=== PATIENT | female | born 1990 | race African-American/Black ===

== ENCOUNTER 2022-02-01 09:30 | Inpatient (IN) | payer OTHER ==
[~2022-02-01] VITALS: Ht 165.1 cm; Wt 83.9 kg
[2022-02-01] MEDS ORDERED: TERBUTALINE 1 MG/ML VIAL SUBQ ONE (09:56)
[2022-02-01] MEDS ORDERED: LACTATED RINGERS 1,000 ML IV SCH (10:05)
[2022-02-01] MEDS: TERBUTALINE 1 MG/ML VIAL SUBQ SCH ×2 (10:38→10:39)
[2022-02-01 10:59] VITALS: BP 133/72
[2022-02-01] MEDS ORDERED: PNV1TABL5 PO (11:02)
[2022-02-01] MEDS ORDERED: MAG SULF 2000 MG/WATER PREMIX 50 ML IV ONE (11:30)
[2022-02-01] MEDS ORDERED: MAG SULF 20 GM/H2O PREMIX DRIP 500 ML IV SCH (11:30)
[2022-02-01] MEDS ORDERED: MORPHINE SULFATE 5 MG/ML VIAL IVP PRN (11:35)
[2022-02-01] MEDS ORDERED: AMPICILLIN 2,000 MG in NACL 0.9% 100 ML IV ONE (11:35)
[2022-02-01] MEDS ORDERED: ONDANSETRON 4 MG/2 ML VIAL IVP PRN ×3 (11:35→16:15)
[2022-02-01] MEDS ORDERED: AMPICILLIN 2,000 MG VIAL ONE (11:44)
[2022-02-01] MEDS ORDERED: MORPHINE SULFATE 10 MG/ML VIAL ONE (12:00)
[2022-02-01 12:11] LABS: APPEARANCE,URINE CLEAR (CLEAR); BILIRUBIN,URINE NEGATIVE (NEGATIVE); BLOOD, URINE NEGATIVE (NEGATIVE); COLOR,URINE YELLOW (YELLOW); LEUKOCYTE ESTERASE ,URINE TRACE (NEGATIVE); NITRITE, URINE NEGATIVE (NEGATIVE); UGLUCOSE NEGATIVE (NEGATIVE)
[2022-02-01 12:17] LABS: BASOPHILS % (AUTO) 0.2 % (0.0-2.0); EOSINOPHILS % (AUTO) 0.1 % (0.0-4.0); HEMOGLOBIN 9.3 g/dL (12.0-16.0); LYMPHOCYTES # (AUTO) 2.5 K/uL (2.5-16.5); LYMPHOCYTES % (AUTO) 16.4 % (20.5-51.1); MEAN CORPUSCULAR HEMOGLOBIN 26 pg (27-31); MEAN CORPUSCULAR HGB CONC 32 g/dL (33-37); MEAN CORPUSCULAR VOLUME 80.4 fL (80-94); MONOCYTES # (AUTO) 0.9 K/uL (0.8-1.0); MONOCYTES % (AUTO) 5.7 % (1.7-9.3); NEUTROPHILS # (AUTO) 11.7 K/uL (1.8-7.7); NEUTROPHILS % (AUTO) 77.6 % (42.2-75.2); PLATELET COUNT (AUTO) 373 K/uL (140-450); RED BLOOD CELL COUNT(AUTO) 3.61 MIL/uL (4.20-5.40); RED CELL DISTRIBUTION WIDTH 17.6 % (11.6-13.7); WHITE BLOOD COUNT (AUTO) 15.1 K/uL (4.8-10.8)
[2022-02-01 12:37] LABS: RBC,URINE 0 /HPF (0-5); WBC,URINE 0 /HPF (0-5)
[2022-02-01 12:51] LABS: ANION GAP 15.8 (8-16); CREATININE 0.7 mg/dL (0.6-1.3); TOTAL BILIRUBIN 0.5 mg/dL (0.0-1.0)
[2022-02-01 13:00] LABS: POTASSIUM 2.8 mmol/L (3.5-5.1)
[2022-02-01] MEDS ORDERED: POTASSIUM CHLORIDE 40 MEQ, LIDOCAINE MPF 1% 25 MG in NACL 0.9% 250 ML IV SCH (14:00)
[2022-02-01] MEDS ORDERED: CITRIC ACID/SODIUM CITRATE 30 ML UDC PO ONE (14:45)
[2022-02-01] MEDS ORDERED: MIDAZOLAM 2 MG/2 ML VIAL ONE (15:40)
[2022-02-01] MEDS ORDERED: MORPHINE PRES FREE 10 MG/10 ML AMP IV ONE (15:40)
[2022-02-01] MEDS ORDERED: ONDANSETRON 4 MG/2 ML VIAL ONE (15:40)
[2022-02-01] MEDS ORDERED: TEMAZEPAM 15 MG CAP PO PRN (15:50)
[2022-02-01] MEDS ORDERED: KETOROLAC 30 MG/ML VIAL IVP PRN (15:50)
[2022-02-01] MEDS ORDERED: OXYTOCIN 20 UNITS in LACTATED RINGERS 1,000 ML IV SCH ×2 (15:50→16:15)
[2022-02-01] MEDS ORDERED: oxyCODONE/APAP 5/325 MG 1 TAB TAB PO PRN (15:50)
[2022-02-01] MEDS ORDERED: IBUPROFEN 800 MG TAB PO PRN (15:50)
[2022-02-01] MEDS ORDERED: OXYTOCIN 20 UNITS in DEXT 5% / LACT RING 1,000 ML IV SCH (15:50)
[2022-02-01] MEDS ORDERED: METHYLERGONOVINE 0.2 MG/ML AMP IM PRN (15:50)
[2022-02-01] MEDS ORDERED: AMPICILLIN 1,000 MG in NACL 0.9% 50 ML IV SCH (16:00)
[2022-02-01] MEDS ORDERED: OXYTOCIN 20 UNITS/LR PREMIX 1,000 ML IV ONE (16:06)
[2022-02-01] MEDS ORDERED: HYDROmorphone 1 MG/ML AMP IVP PRN (16:15)
[2022-02-01] MEDS ORDERED: diphenhydrAMINE 50 MG/ML VIAL IVP PRN ×2 (16:15)
[2022-02-01] MEDS ORDERED: NALBUPHINE 10 MG/ML AMP IVP PRN (16:15)
[2022-02-01] MEDS ORDERED: NALOXONE 0.4 MG/ML VIAL IVP PRN ×3 (16:15)
[2022-02-01] MEDS ORDERED: MEPERIDINE 25 MG/ML SYR IVP PRN (16:15)
[2022-02-01] MEDS: DOCUSATE SOD/SENNA 50/8.6 MG 1 TAB PO SCH (21:00)
[2022-02-02] MEDS: KETOROLAC 30 MG/ML VIAL IM/IVP SCH ×2 (00:02→06:08)
[2022-02-02] MEDS ORDERED: OXYTOCIN 20 UNITS/LR PREMIX 1,000 ML IV ONE ×2 (02:06→10:28)
[2022-02-02] MEDS: OXYTOCIN 20 UNITS in LACTATED RINGERS 1,000 ML IV SCH ×2 (02:10→11:30)
[2022-02-02 08:00] LABS: BASOPHILS % (AUTO) 0.2 % (0.0-2.0); EOSINOPHILS % (AUTO) 0.2 % (0.0-4.0); HEMATOCRIT 24.4 % (36-48); HEMOGLOBIN 7.8 g/dL (12.0-16.0); LYMPHOCYTES # (AUTO) 1.3 K/uL (2.5-16.5); LYMPHOCYTES % (AUTO) 10.8 % (20.5-51.1); MEAN CORPUSCULAR HEMOGLOBIN 26 pg (27-31); MEAN CORPUSCULAR HGB CONC 32 g/dL (33-37); MEAN CORPUSCULAR VOLUME 79.7 fL (80-94); MONOCYTES # (AUTO) 0.9 K/uL (0.8-1.0); MONOCYTES % (AUTO) 7.2 % (1.7-9.3); NEUTROPHILS # (AUTO) 9.7 K/uL (1.8-7.7); NEUTROPHILS % (AUTO) 81.6 % (42.2-75.2); PLATELET COUNT (AUTO) 314 K/uL (140-450); RED BLOOD CELL COUNT(AUTO) 3.06 MIL/uL (4.20-5.40); RED CELL DISTRIBUTION WIDTH 17.5 % (11.6-13.7); WHITE BLOOD COUNT (AUTO) 11.9 K/uL (4.8-10.8)
--- NOTE | 2022-02-02 08:04 | NUR ---
PATIENT HAS BEEN SCREENED AND CATEGORIZED LOW NUTRITION RISK. PATIENT WILL BE SEEN WITHIN 7 DAYS OF ADMISSION. 02/02/22-02/08/[address]
[2022-02-02 08:21] LABS: ALBUMIN 2.2 g/dL (3.4-5.0); ANION GAP 13.9 (8-16); CARBON DIOXIDE 20.8 mmol/L (21-32); CREATININE 0.6 mg/dL (0.6-1.3); POTASSIUM 3.7 mmol/L (3.5-5.1); TOTAL BILIRUBIN 0.7 mg/dL (0.0-1.0)
[2022-02-02] MEDS: SIMETHICONE 80 MG TAB.CHEW PO PRN ×2 (13:00→17:15)
[2022-02-02] MEDS: DOCUSATE SOD/SENNA 50/8.6 MG 1 TAB PO SCH (20:45)
[2022-02-03] MEDS: oxyCODONE/APAP 5/325 MG 1 TAB TAB PO PRN ×2 (03:45→10:11)
[2022-02-03] MEDS ORDERED: CAMERA MC ONE (04:40)
== END 2022-02-03 15:00 | disposition home or self-care (01) | DRG 788 ==
LOC: MLD 09:30 → OBSVTOIN 09:30 → MFCC 18:19
PROVIDERS: ADMIT Obstetrics & Gynecology; ATTEND Obstetrics & Gynecology
PROC: 10D00Z1 Extraction of Products of Conception, Low, Open Approach (ICD-10-PCS; principal; 2022-02-01 15:30)
DX: O34.211 Maternal care for low transverse scar from previous cesarean delivery (principal); Z3A.35 35 weeks gestation of pregnancy; Z37.0 Single live birth; Z20.822 Contact with and (suspected) exposure to COVID-19
CPT/HCPCS: 36415; 80053; 81001; 85025; 86592; 86762; 86850; 86886; 86900; 86901; 87340; 87653-90; J0290; J0690; J1200; J1885; J2001; J2250; J2270; J2405; J2590; J3105; J3475; J3480; J7030; J7060; J7120